=== PATIENT | male | born 1985 | race Caucasian/White ===

== ENCOUNTER → 2019-11-08 | Outpatient (CLI) | payer OTHER ==
--- NOTE | 2019-11-08 11:51 | KCIC ---
MRI right knee without contrast dated 11/08/2019. No comparison available. CLINICAL INDICATION: Pain. TECHNIQUE: Routine multiplanar multisequence MR imaging of right knee performed. No contrast administered. FINDINGS: Bone marrow signal is homogeneous. No marrow edema. Articular cartilage is intact. No osteochondral defect. Tiny joint effusion. No loose body No significant popliteal cyst. Anterior cruciate and posterior cruciate ligaments intact. Medial and lateral collateral complexes intact. Iliotibial band, popliteus tendon and pes anserine complex within normal limits. Quadriceps and patellar tendon are intact. No abnormality of the medial or lateral retinaculum. There is a horizontal oblique tear posterior horn/body of medial meniscus with extension to the tibial articular surface. Anterior horn is intact. Lateral meniscus is normal in morphology and signal. IMPRESSION: 1. Horizontal oblique tear posterior horn/body of medial meniscus. 2. Small joint effusion. Electronically signed by: Costa Dominguez MD (11/08/2019 11:48 AM) [facility]
== END | disposition home or self-care (01) ==
LOC: KCIC MRI 10:54
PROVIDERS: ATTEND Orthopaedic Surgery Sports Medicine
DX: M23.203 Derangement of unspecified medial meniscus due to old tear or injury, right knee (principal); M25.461 Effusion, right knee
CPT/HCPCS: 73721

== ENCOUNTER → 2019-11-18 | Outpatient (CLI) | payer OTHER ==
--- NOTE | 2019-11-18 17:51 | PDOC4 ---
PROCEDURE Procedure Loop recorder implantation Reason for procedure: Arrhythmia of unclear etiology Details: After appropriate informed consent the patient was prepped and draped in usual sterile fashion. 1% lidocaine local anesthesia in the left parasternal space was used to anesthetize the skin. A 0.5 inch incision was made at the level of the left parasternal space and the nipple. Next, a subcutaneous tunnel was created through which a Biotronik implant loop recorder was placed without any difficulties. The incision was then closed with Steri-Strips. No acute complications were noted. The patient tolerated the procedure well. Conclusion: 1. Successful insertion of a Biotronik 3 implantable loop recorder for arrhythmia of unclear etiology. ROSELINE ALDRICH MD Nov 18, 2019 17:51
== END ==
LOC: LINQ 12:19
PROVIDERS: ATTEND Internal Medicine Cardiovascular Disease
DX: Z45.09 Encounter for adjustment and management of other cardiac device (principal); I49.9 Cardiac arrhythmia, unspecified
CPT/HCPCS: 33285; C1764

== ENCOUNTER → 2020-01-14 | Outpatient (CLI) | payer OTHER ==
--- NOTE | 2020-01-14 09:49 | CARD ---
MR#: [id number] Date of Study: 01/14/2020 Ordering Physician: ROSELINE ALDRICH, Referring Physician: ROSELINE ALDRICH, Tech: Magali Ku APPROVED REPORT EXAM: Two-dimensional and M-mode echocardiogram with Doppler and color Doppler. Other Information Quality : GoodHR: 60bpm INDICATION Arrhythmia Supraventricular tachycardia 2D DIMENSIONS RVDd3.5 (2.9-3.5cm)Left Atrium(2D)2.7 (1.6-4.0cm) IVSd0.8 (0.7-1.1cm)Aortic Root(2D)2.7 (2.0-3.7cm) LVDd4.6 (3.9-5.9cm)LVOT Diameter2.0 (1.8-2.4cm) PWd0.9 (0.7-1.1cm)LVDs3.5 (2.5-4.0cm) FS (%) 25.6 %SV49.9 ml Aortic Valve AoV Peak Sachin.106.3cm/sAoV VTI20.3cm AO Peak GR.4.5mmHgLVOT Peak Sachin.87.0cm/s LVOT VTI 18.43cmAO Mean GR.2mmHg KASIE (VMAX)1.90br1XPP (VTI)2.92cm2 Mitral Valve MV E Qbdowsmk09.5cm/sMV DECEL UAXI197ps MV A Udgkkrsx56.9cm/sMV E Mean Gr.1mmHg MV ZLK19tgH/A Ratio1.4 MVA (PHT)3.45cm2 TDI E/Lateral E'3.5E/Medial E'6.0 Pulmonary Valve PV Peak Btocquot10.5cm/sPV Peak Grad.3mmHg Tricuspid Valve TR P. Riftngcm504zn/sRAP IZGVJOQZ11aiJn TR Peak Gr.18soWcFVXR49lsCm Pulmonary Vein S1 Lnnkzvrj76.1cm/sD2 Fkkfhswu53.2cm/s PVa apdesbur062wlmw LEFT VENTRICLE The left ventricle is normal size. There is normal left ventricular wall thickness. The left ventricu lar systolic function is normal and the ejection fraction is within normal range. The Ejection Fracti on is 50-55%. There is normal LV segmental wall motion. The left ventricular diastolic function and f illing is normal for age. RIGHT VENTRICLE The right ventricle is normal size. There is normal right ventricular wall thickness. The right ventr icular systolic function is normal. ATRIA The left atrium size is normal. The right atrium size is normal. The interatrial septum is intact wit h no evidence for an atrial septal defect or patent foramen ovale as noted on 2-D or Doppler imaging. AORTIC VALVE The aortic valve is normal in structure and function. Doppler and Color Flow revealed no significant aortic regurgitation. There is no significant aortic valvular stenosis. MITRAL VALVE The mitral valve is normal in structure and function. There is no evidence of mitral valve prolapse. There is no mitral valve stenosis. Doppler and Color-flow revealed trace mitral regurgitation. TRICUSPID VALVE The tricuspid valve is normal in structure and function. Doppler and Color Flow revealed trace tricus pid regurgitation with an estimated PAP of 40 mmHg. There is no tricuspid valve stenosis. PULMONIC VALVE The pulmonary valve is normal in structure and function. Doppler and Color Flow revealed trace to mil d pulmonic valvular regurgitation. GREAT VESSELS The aortic root is normal in size. The IVC is dilated and collapses >50% with inspiration. PERICARDIAL EFFUSION There is no evidence of significant pericardial effusion. Critical Notification Critical Value: No <Conclusion> The left ventricle is normal size. The left ventricular systolic function is normal and the ejection fraction is within normal range. The Ejection Fraction is 50-55%. Doppler and Color Flow revealed no significant aortic regurgitation. There is no significant aortic valvular stenosis. Doppler and Color-flow revealed trace mitral regurgitation. Doppler and Color Flow revealed trace tricuspid regurgitation with an estimated PAP of 40 mmHg. Signed by : Sven Prather MD Electronically Approved : 01/14/2020 09:48:47
== END | disposition home or self-care (01) ==
LOC: ECHO 07:41
PROVIDERS: ATTEND Internal Medicine Cardiovascular Disease
DX: I37.1 Nonrheumatic pulmonary valve insufficiency (principal); I47.1 Supraventricular tachycardia
CPT/HCPCS: 93306

== ENCOUNTER → 2020-05-11 | Outpatient (CLI) | payer OTHER | END | disposition home or self-care (01) | LOC: LAB 13:37 | PROVIDERS: ATTEND Orthopaedic Surgery Sports Medicine | DX: Z01.818 Encounter for other preprocedural examination (principal); Z11.59 Encounter for screening for other viral diseases; S83.241A Other tear of medial meniscus, current injury, right knee, initial encounter; X58.XXXA Exposure to other specified factors, initial encounter; Y93.89 Activity, other specified; Y92.89 Other specified places as the place of occurrence of the external cause; Y99.8 Other external cause status | CPT/HCPCS: U0003-CS ==

== ENCOUNTER 2020-05-15 07:59 | Day surgery (SDC) | payer OTHER ==
[~2020-05-15] VITALS: Ht 193 cm; Wt 83.9 kg
[~2020-05-15 07:59] MED LIST: HYDROmorphone 2 MG/ML VIAL IV PRN; IV RINGERS,LACTATED 1000ML 1,000 ML IV SCH; LIDOCAINE 1% PF 2 ML VIAL. ID PRN; MORPHINE SULFATE 2 MG/ML VIAL. IV PRN; ONDANSETRON PF 4 MG/2 ML VIAL. IV PRN; PROCHLORPERAZINE 10 MG/2 ML VIAL. IV PRN; fentaNYL PF VIAL 100 MCG/2 ML VIAL IV PRN
[2020-05-15] MEDS ORDERED: FAMOTIDINE 20 MG/2 ML VIAL ONE (08:17)
[2020-05-15] MEDS ORDERED: PROPOFOL 10 MG/ML (20ML) VIAL. IV ONE (08:17)
[2020-05-15] MEDS ORDERED: ONDANSETRON PF 4 MG/2 ML VIAL. ONE (08:17)
[2020-05-15] MEDS ORDERED: LIDOCAINE 2% PF 5 ML VIAL. ONE (08:17)
[2020-05-15] MEDS ORDERED: fentaNYL PF VIAL 100 MCG/2 ML VIAL ONE (08:17)
[2020-05-15] MEDS ORDERED: MIDAZOLAM HCL/PF 2 MG/2 ML VIAL. ONE (08:17)
[2020-05-15] MEDS ORDERED: DEXAMETHASONE SOD PHOS 4 MG/ML VIAL ONE (08:17)
[2020-05-15] MEDS ORDERED: ceFAZolin 2GM PREMIX 2 GM/50 ML BAG IV ONE (09:00)
[2020-05-15] MEDS ORDERED: EPINEPHrine VIAL 30 MG/30 ML VIAL ONE (09:04)
[2020-05-15] MEDS ORDERED: BUPIVACAINE MPF 0.5% 30 ML VIAL. ONE (09:04)
[2020-05-15] MEDS ORDERED: LIDOCAINE 1% PF 30 ML VIAL. ONE (09:04)
--- NOTE | 2020-05-15 09:23 | DISCH ---
DISCHARGE INSTRUCTIONS Condition on Discharge Condition on Discharge: Stable Activity After Discharge Activity Instructions for Disc: Activity as tolerated Bathing Instructions: Shower-keep dressing dry Weight Bearing Status after Di: As tolerated Diet after Discharge Diet after Discharge: Regular Wound Incision Care Wound/Incision Care: Ice to area for comfort, Keep wound/cast CDI, Change dressing Other wound/incision instructi: ok to change dressing after [address] after DC Call your doctor for: Concerns you may have Follow-Up Follow up with: Robbie in 2 wks Follow Up With: PT this week JING COTO II, MD May 15, 2020 09:23
[2020-05-15] MEDS ORDERED: SEVOFLURANE 31 TO 60 MINUTES. IH ONE (09:48)
--- NOTE | 2020-05-15 09:59 | PDOC4 ---
Operative Note Operative Note Date of procedure: 05/15/2020 Surgeon: Theo Coto Literacy Tutor: Chevy Olivas Preoperative diagnosis: Right knee medial meniscus tear, chronic Postoperative diagnosis: Same Procedure performed: Arthroscopic right knee partial medial meniscectomy Anesthesia: General Findings: #1 horizontal undersurface tear of medial meniscus 2. Intact cartilage at patellofemoral medial and lateral compartments #3 no loose bodies 4. Intact cruciate ligaments 5. Unremarkable lateral meniscus Blood loss: 5 mL Tourniquet time: 15 minutes Reason for procedure: Patient is a very pleasant 34-year-old who tells me he has a known meniscus tear for a couple of years. Please see my outpatient notes for further details. He and I had added couple discussions of the risks, benefits, alternatives to partial medial meniscectomy versus repair if repairable and he tells me that given his current work situation a repair would not at all be possible. I did confirm this with him on multiple occasions. He elected to proceed with the partial medial meniscectomy. Description of procedure: Patient was greeted in the preoperative area by myself or the correct strength was verified and marked. He was taken back to the opera tive suite his antibiotics were started as he was brought back. Once in the operating room, he was transferred gently supine to the operating table and secured to the bed with all pressure points padded and had successful induction of a general anesthetic. Examination under anesthesia demonstrated range of motion 0 to 140 degrees, knee was stable to varus and valgus in extension and 30 degrees of flexion. Negative dial. Negative pivot. Nonsterile tourniquet taped in place to his right thigh, padded bump laterally at his right hip and a padded foot rest were secured to the bed as well to maintain his knee at 90 degrees passively. We then proceeded to prep and drape right lower extremity in our usual sterile fashion and conducted our standard preoperative timeout. After this, I palpated marked surface anatomy. Extremity was exsanguinated with Esmarch and tourniquet insufflated to 250 mmHg. I then incised skin for my standard anterolateral portal. I introduce a blunt arthroscopic trocar into the suprapatellar pouch. I then began my diagnostic arthroscopy. Upon entering the medial compartment, used a spinal to localize a medial portal and incised skin accordance with this and dilated this hole with a straight hemostat. I then introduced a probe and continued on with my diagnostic arthroscopy. I then came back to the medial compartment using combination of shaver and arthroscopic biter, trim back his medial meniscus to stable edges. After this, I placed the shaver and camera into the suprapatellar pouch and perform repeated aspiration maneuvers with vigorous palpation from my portfolio assistant in the popliteal fossa. I then removed all excess arthroscopic fluid in the instrumentation. I then injected local anesthetic mixture into the marilyn-portal areas. After this, skin was closed with simple interrupted 3-0 nylon. The areas were cleansed and dried and a sterile bulky soft dressing was applied. Patient was awake from anesthesia. He tolerated surgery well. No complications. At the conclusion, he was transferred gently supine to the recovery room cart and taken to PACU in stable and extubated condition. Postoperative plan is to allow weightbearing as tolerated. He has physical therapy set up later this week. I will see him back in 2 weeks, sooner should a problem arise THEO COTO II, MD May 15, 2020 09:59
[2020-05-15] MEDS ORDERED: DOCU-109 PO ×2 (10:35→10:36)
[2020-05-15] MEDS ORDERED: HYDR-2163 PO (10:37)
[2020-05-15] MEDS ORDERED: ONDA8TAB9 PO (10:38)
[2020-05-15 10:48] VITALS: BP 115/73
== END 2020-05-15 11:36 | disposition home or self-care (01) ==
LOC: SURG 07:59
PROVIDERS: ATTEND Orthopaedic Surgery Sports Medicine
DX: S83.241A Other tear of medial meniscus, current injury, right knee, initial encounter (principal); X58.XXXA Exposure to other specified factors, initial encounter; Y93.89 Activity, other specified; Y92.89 Other specified places as the place of occurrence of the external cause; Y99.8 Other external cause status; Z79.899 Other long term (current) drug therapy; Z88.8 Allergy status to other drugs, medicaments and biological substances
CPT/HCPCS: 29881; A7015; J0171; J0690; J1100; J2250; J2405; J2704; J3010; J3490